=== PATIENT | female | born 1985 | race Caucasian/White ===

== ENCOUNTER → 2017-02-08 | Outpatient (CLI) | payer BC ==
[~2017-02-08] MED LIST: MTR600X PO; OXYC-57 PO; PROZAC PO
[2017-02-08 17:21] LABS: BASO % 0.3 %; BASO ABS # 0.02 K/uL (0-0.2); COMPLETE YES; IG% 0.1 %; LYMPH % 26.5 %; LYMPH ABS # 1.84 K/uL (1.2-3.4); MEAN CORPUSCULAR HEMOGLOBIN 28.8 pg (25-34); MEAN CORPUSCULAR HGB CONC 34.8 g/dl (32-36); MEAN PLATELET VOLUME 10.7 fL (7.4-10.4); MONO % 9.5 %; NEUT % 58.6 %; PLATELET COUNT 221 K/uL (130-400); RED BLOOD COUNT 4.82 M/uL (4.2-5.4); WHITE BLOOD COUNT 6.95 K/uL (4.8-10.8)
== END | disposition home or self-care (01) ==
LOC: C.LAB1850 16:01
PROVIDERS: ATTEND Obstetrics & Gynecology
DX: O34.219 Maternal care for unspecified type scar from previous cesarean delivery (principal)

== ENCOUNTER → 2017-02-08 | Outpatient (CLI) | payer BC ==
[2017-02-08 18:19] LABS: URINE APPEARANCE CLEAR (CLEAR); URINE BILIRUBIN NEG (NEG); URINE COLOR YELLOW; URINE NITRITE NEG (NEG); URINE PH 6.5 (4.5-7.5); URINE SPECIFIC GRAVITY 1.007 (1.000-1.030); UROBILINOGEN NEG (NEG)
[2017-02-08 18:27] LABS: MANUAL MICROSCOPIC REQUIRED? NO; REVIEW REQ? NO
[2017-02-11 15:43] LABS: CHLAMYDIA TRACH RNA*** NOT DETECTED (NOT DETECTED); GC (NEIS GONORRHOEAE)RNA** NOT DETECTED (NOT DETECTED)
== END | disposition home or self-care (01) ==
LOC: C.LABSPEC 17:24
PROVIDERS: ATTEND Obstetrics & Gynecology
DX: O34.219 Maternal care for unspecified type scar from previous cesarean delivery (principal)

== ENCOUNTER → 2017-04-05 | Outpatient (CLI) | payer BC ==
[2017-04-05 12:46] LABS: GTGD 50 Grams
== END | disposition home or self-care (01) ==
LOC: C.LAB1850 09:31
PROVIDERS: ATTEND Obstetrics & Gynecology
DX: O34.219 Maternal care for unspecified type scar from previous cesarean delivery (principal)

== ENCOUNTER → 2017-04-08 | Outpatient (CLI) | payer BC ==
[2017-04-08 07:50] LABS: PATIENT HEIGHT 172.7 cm
[2017-04-08 14:47] LABS: URINE TOTAL PROTEIN 6.7 mg/dl (0-11.9)
[2017-04-08 14:49] LABS: CREATININE 0.74 mg/dl (0.6-1.2)
== END | disposition home or self-care (01) ==
LOC: C.LABMFLN 07:40
PROVIDERS: ATTEND Obstetrics & Gynecology
DX: O10.019 Pre-existing essential hypertension complicating pregnancy, unspecified trimester (principal); Z3A.00 Weeks of gestation of pregnancy not specified

== ENCOUNTER → 2017-04-12 | Outpatient (CLI) | payer BC | END | disposition home or self-care (01) | LOC: C.LAB1850 07:54 | PROVIDERS: ATTEND Obstetrics & Gynecology | DX: O28.1 Abnormal biochemical finding on antenatal screening of mother (principal) ==

== ENCOUNTER → 2017-06-28 | Outpatient (CLI) | payer BC ==
[2017-06-28 09:38] LABS: HEMATOCRIT 36.7 % (37-47)
[2017-06-28 14:18] LABS: URINE APPEARANCE CLEAR (CLEAR); URINE BILIRUBIN NEG (NEG); URINE COLOR YELLOW; URINE EPITHELIAL CELL AUTO >30 /lpf (0-5); URINE NITRITE NEG (NEG); URINE PH 6.5 (4.5-7.5); URINE SPECIFIC GRAVITY 1.013 (1.000-1.030); UROBILINOGEN NEG (NEG)
[2017-06-28 14:26] LABS: MANUAL MICROSCOPIC REQUIRED? NO; REVIEW REQ? NO
== END | disposition home or self-care (01) ==
LOC: C.LAB1850 08:04
PROVIDERS: ATTEND Obstetrics & Gynecology
DX: O09.213 Supervision of pregnancy with history of pre-term labor, third trimester (principal); Z3A.00 Weeks of gestation of pregnancy not specified; O28.1 Abnormal biochemical finding on antenatal screening of mother

== ENCOUNTER 2017-09-05 10:27 | Inpatient (IN) | payer BC ==
[2017-09-05] VITALS: BP 145/95; PULSE 72; TEMP 36.4; O2SAT 100
[~2017-09-05] VITALS: Ht 172.7 cm; Wt 90.5 kg
[2017-09-05] MEDS ORDERED: PRENTAB26 PO (11:24)
[2017-09-05 11:27] VITALS: Ht 172.7 cm; Wt 90.5 kg
[2017-09-05 11:43] LABS: BASO % 0.2 %; BASO ABS # 0.02 K/uL (0-0.2); EOS % 3.3 %; EOS ABS # 0.32 K/uL (0-0.5); HEMATOCRIT 34.3 % (37-47); HEMOGLOBIN 12.1 g/dL (12.0-16.0); IG# 0.05 K/uL (0.00-0.02); LYMPH % 16.5 %; LYMPH ABS # 1.61 K/uL (1.2-3.4); MEAN CELL VOLUME 86.4 fL (80-100); MEAN CORPUSCULAR HEMOGLOBIN 30.5 pg (25-34); MEAN CORPUSCULAR HGB CONC 35.3 g/dl (32-36); MEAN PLATELET VOLUME 10.2 fL (7.4-10.4); MONO ABS # 0.49 K/uL (0.11-0.59); NEUT % 74.5 %; NEUT ABS # 7.25 K/uL (1.4-6.5); PLATELET COUNT 155 K/uL (130-400); RED CELL DISTRIBUTION WIDTH CV 12.8 % (11.5-14.5); RED CELL DISTRIBUTION WIDTH SD 40.4 fL (36.4-46.3); WHITE BLOOD COUNT 9.74 K/uL (4.8-10.8)
[2017-09-05 12:49] LABS: ALBUMIN 2.6 gm/dl (3.4-5.0); CALCIUM 8.5 mg/dl (8.5-10.1); CREATININE 0.71 mg/dl (0.60-1.20); POTASSIUM 3.6 mmol/L (3.5-5.1)
[2017-09-05] MEDS ORDERED: CITRIC ACID/SODIUM CITRATE 15 ML UDC PO ONE (13:30)
--- NOTE | 2017-09-05 13:40 | History & Physical Bridge Note ---
H&P Re-Evaluation Bridge Note: I have examined the patient, reviewed the History & Physical and in the interval since the performance of the History & Physical I have noted the following changes of clinical significance: No changes noted
[2017-09-05] MEDS ORDERED: OXYTOCIN INJ 10 UNITS/ML VIAL ONE ×4 (13:49→16:28)
[2017-09-05] MEDS ORDERED: MoRPHine SULFATE PF 1 MG/ML 10 ML AMP/VIAL ONE (13:50)
[2017-09-05] MEDS ORDERED: FENTANYL CITRATE INJ 50 MCG/1 ML 2 ML VIAL ONE (13:50)
[2017-09-05] MEDS ORDERED: LACTATED RINGER'S 1000ML 1,000 ML IV ONE (13:50)
[2017-09-05] MEDS ORDERED: EpHEDrine SULFATE INJ 50 MG/ML AMP ONE (13:59)
[2017-09-05] MEDS ORDERED: CEFAZOLIN IV 2,000 MG in SYRINGE 0 ML IV ONE (14:00)
[2017-09-05] MEDS ORDERED: CEFAZOLIN IV 2,000 MG in DEXTROSE 5% 50ML 50 ML IV SCH (14:00)
--- NOTE | 2017-09-05 14:04 | HISTORY & PHYSICAL EXAMINATION ---
DATE OF ADMISSION: 09/05/2017 CHIEF COMPLAINT: Elevated blood pressures. HISTORY OF PRESENT ILLNESS: The patient is a 32-year-old G2, P1-0-0-1 at 37 weeks 6 days, who was sent from office with elevated blood pressures. She has been watched for chronic hypertension; however, over the past 2 visits, her blood pressures have climbed from 130s/80s to now 140s/90s and 150s/100s. She also complains of a headache. No right upper quadrant pain. Did see flashing spots in her vision earlier this week. is complicated by asthma, chronic hypertension, history of section, breech presentation, depression, group B strep carrier, history of delivery, thus requiring 17-OHP injections during this . Today, she reports positive movement. No vaginal bleeding. No gushing of fluid. No regular cramping or cinthya. PAST MEDICAL HISTORY: Migraines and anxiety without current medications. Sees [employer]. Depression and exercise induced asthma. PAST SURGICAL HISTORY: [employer] teeth, section, and colonoscopy. SOCIAL HISTORY: Denies tobacco, alcohol or drug use. Lives with spouse and daughter. FAMILY HISTORY: The patient's mother is with cleft lip and thyroid cancer. There is also a family history of diabetes. The patient's mother is with probable history of DVT as well as her maternal grandmother. The patient herself has never had a clot. REVIEW OF SYSTEMS: Negative except as described. Otherwise above. MEDICATIONS: vitamin and fluoxetine. ALLERGIES: No known drug allergies. PHYSICAL EXAMINATION: VITAL SIGNS: Blood pressure 150s/100s, heart rate 81, respirations 20, and temperature 98.2. GENERAL IMPRESSION: Awake, alert and oriented x3, in no acute distress. HEART: Regular rate and rhythm. S1 and S2. No murmurs, gallops or rubs. LUNGS: Clear to auscultation bilaterally. ABDOMEN: Soft, gravid, nontender to palpation. Breech by Kraig's. EXTREMITIES: No edema and no calf tenderness. heart tracing 120s with moderate variability, positive accelerations, no decelerations, and occasional contractions. LABORATORY DATA: Blood type A positive and rubella immune. Group B strep positive from urine culture early in . Hepatitis, HIV, gonorrhea and chlamydia, and syphilis testing negative. Declined cystic fibrosis testing. Anatomy scan shows uterine septum. Preeclampsia labs today are negative. In the patient's laboratory charting, there is a documented administration of RhoGAM on 08/01/2017; however, the patient has never had an appointment that day and she does not recall ever being administered RhoGAM. Additionally, she is Rh positive blood type and does not recall ever being told at any point that she was Rh negative blood type. I believe in discussion with the patient that this is likely a mistake in her charting; however, we will obtain a type and screen again today to be sure. ASSESSMENT AND PLAN: 1. A 32-year-old G2, P1-0-0-1 at 37 weeks 6 days. 2. Chronic hypertension with worsening blood pressures and symptomatic hypertension with headache. 3. Breech presentation with uterine septum. 4. History of section x1. PLAN: Due to the patient's worsening blood pressures and headache, we will proceed with section at this time. She also desires tubal ligation at the time of section. The patient has been counseled. Risks, benefits, and alternatives have been reviewed. She had elected to proceed with treatment. We will proceed to the operating room when ready. MARTIN
[2017-09-05] MEDS ORDERED: LACTATED RINGER'S 1000ML 1,000 ML IV SCH ×2 (14:50→16:19)
[2017-09-05] MEDS ORDERED: NALOXONE HCL INJ 1 MG in SODIUM CHLORIDE 0.9% 1000ML 1,000 ML IV PRN ×5 (14:51→15:41)
[2017-09-05] MEDS ORDERED: SODIUM CHLORIDE 0.9% 1000ML 1,000 ML IV PRN ×2 (14:51→15:41)
[2017-09-05] MEDS ORDERED: KETOROLAC TROMETHAMINE 30 MG/ML VIAL IV. PRN (15:00)
[2017-09-05] MEDS ORDERED: PHENYLEPHRINE 100MCG/ML 5ML SYR IV PRN (15:00)
[2017-09-05] MEDS ORDERED: NALBUPHINE HCL INJ 10 MG/ML AMP IV PRN ×2 (15:00→15:45)
[2017-09-05] MEDS ORDERED: DiphenhydrAMINE HCL 50 MG/ML VIAL IV PRN ×2 (15:00→15:45)
[2017-09-05] MEDS ORDERED: ONDANSETRON INJ 2 MG/ML 2 ML VIAL IV PRN ×2 (15:00→15:45)
[2017-09-05] MEDS ORDERED: PROMETHAZINE HCL INJ 12.5 MG in SODIUM CHLORIDE 0.9% 50ML 50 ML IV PRN (15:00)
[2017-09-05] MEDS ORDERED: ATROPINE SULFATE 0.1 MG/ML 5ML SYR IV PRN (15:00)
[2017-09-05] MEDS ORDERED: EpHEDrine SULFATE INJ 50 MG/ML AMP IV PRN ×2 (15:00→15:45)
[2017-09-05] MEDS ORDERED: LABETALOL HCL IV 5 MG/ML 20ML IV PRN (15:00)
[2017-09-05] MEDS ORDERED: FENTANYL CITRATE INJ 50 MCG/1 ML 2 ML VIAL IV PRN (15:00)
[2017-09-05] MEDS ORDERED: NALOXONE HCL INJ 0.08 MG in SYRINGE 1.8 ML IV PRN (15:41)
[2017-09-05] MEDS ORDERED: LACTATED RINGER'S 1000ML 500 ML IV PRN (15:41)
[2017-09-05] MEDS ORDERED: METOCLOPRAMIDE HCL INJ 20 MG in SODIUM CHLORIDE 0.9% 50ML 50 ML IV PRN (15:45)
[2017-09-05] MEDS ORDERED: MEPERIDINE HCL 25 MG/ML CARP IV PRN (15:45)
[2017-09-05] MEDS ORDERED: NALOXONE HCL 0.4 MG/1 ML VIAL/CARP IV PRN (15:45)
[2017-09-05] MEDS ORDERED: MoRPHine SULFATE 2 MG/ML CARP IV PRN (15:45)
[2017-09-05] MEDS ORDERED: PROMETHAZINE HCL INJ 25 MG in SODIUM CHLORIDE 0.9% 50ML 50 ML IV PRN (15:45)
[2017-09-05] MEDS ORDERED: NO NARCOTICS OR SEDATIVES SCH (15:45)
[2017-09-05] MEDS ORDERED: MoRPHine SULFATE PF 1 MG/ML 10 ML AMP/VIAL EPI PRN (15:45)
--- NOTE | 2017-09-05 16:24 | [facility] Post Operative Brief Note ---
Immediate Operative Summary Operative Date Sep 05, 2017. Pre-Operative Diagnosis 1. Worsening chronic hypertension. 2. History of low transverse section. 3. Breech presentation. Post-Operative Diagnosis Same Procedure(s) Performed 1. Repeat low transverse section. 2. Bilateral tubal ligation. Surgeon Dr. Alvarado Sanipractic Physician Surgeon(s) Ashly Hilliard RN Estimated Blood Loss 600 Findings Viable male . Normal appearing uterus, tubes, ovaries. Specimens A. Placenta - hold B. Cord blood C. Aterial cord blood gases D. Venous cord blood gases Drains long, clear yellow Anesthesia spinal Complication(s) None Disposition Recovery Room / PACU
[2017-09-05] MEDS ORDERED: EpHEDrine SULFATE 50MG/5ML SYR ONE (16:28)
[2017-09-05] MEDS ORDERED: PHENYLEPHRINE HCL INJ 10 MG/ML VIAL ONE (16:28)
[2017-09-05] MEDS ORDERED: BENZOCAINE 20% AER SPR 82.5 GM CAN EXT PRN (16:30)
[2017-09-05] MEDS ORDERED: LANOLIN OINT EXT PRN (16:30)
[2017-09-05] MEDS ORDERED: HYDROCORTISONE ACETATE 25 MG SUPP PR PRN (16:30)
[2017-09-05] MEDS ORDERED: SUPERCREAM 0.870 % 15GM JAR EXT PRN (16:30)
[2017-09-05] MEDS ORDERED: MAGNESIUM HYDROXIDE SUSP 30 ML UDC PO PRN (16:30)
[2017-09-05] MEDS ORDERED: ONDANSETRON INJ 2 MG/ML 2 ML VIAL ONE (16:32)
--- NOTE | 2017-09-05 17:03 | OPERATIVE REPORT ---
DATE OF OPERATION: 09/05/2017 PREDELIVERY DIAGNOSES: 1. A 32-year-old G2, P1-0-0-1 at 37 weeks 6 days. 2. Chronic hypertension with worsening blood pressures today and headache. 3. History of section x1. 4. Breech presentation. 5. Desire for permanent sterilization. POSTDELIVERY DIAGNOSES: Same. PROCEDURES PERFORMED: Repeat low transverse section and bilateral tubal ligation with Filshie clips. SURGEON: Dr. Wanda Alvarado. DIGITAL WATCH ASSEMBLER: Heather Hilliard RN. ESTIMATED BLOOD LOSS: 600 mL. FINDINGS: Viable male , normal-appearing uterus, tubes, and ovaries. Apgars 6, 8, 8. Weight is still pending. Please see nursery records. DRAINS: Celaya, clear yellow. ANESTHESIA: Spinal. COMPLICATIONS: None. DISPOSITION: Stable and good to recovery room. INDICATIONS FOR PROCEDURE: The patient was seen in the office today with elevated blood pressures in the 150s/100s. She was sent to labor and delivery and blood pressures upon arrival to labor and delivery were the similar, going as high as 164 systolic and 109 diastolic. Due to suddenly worsening blood pressures in consultation with the doctor who sent her from the office Dr. Khanna, I recommended delivery today to the patient; she was agreeable. She also desired permanent sterilization. DESCRIPTION OF DELIVERY: The patient was seen in the preoperative holding area where risks, benefits, alternatives to surgery were reviewed. She elected to proceed with section. We also discussed tubal ligation consent including risk of failure of 2-10/999 cases. She states she has completed childbearing and would like to proceed with section as well as tubal ligation. The patient was taken to the operating room where spinal anesthesia was administered. She was prepared and draped in the usual sterile fashion in the supine position with a leftward tilt. A timeout was confirmed. Using a scalpel, a Pfannenstiel incision was made at the location of the prior scar and carried through to the underlying layer of fascia, this was nicked at midline and extended bilaterally. The superior aspect of the fascial incision was grasped with Aimee clamps x2, elevated off the underlying rectus abdominis muscles and dissected. In a similar fashion, the inferior aspect of the fascial incision was dissected. The rectus abdominis muscles were at midline using a hemostat and the peritoneum was entered bluntly digitally. This incision was extended. Bladder blade was placed and a bladder flap was created using Metzenbaum scissors. The bladder blade was replaced. The uterine incision was made in a low transverse fashion with a new scalpel. This incision was extended cephalad caudad manually. The baby was delivered from a breech presentation. The right leg was delivered first followed by the buttocks followed by the left leg being swept to the center. The baby was wrapped in a damp blue towel and bilateral arms were swept medially for delivery. The head was then delivered. Nuchal cord x1 was noted and easily reduced. The cord was doubly clamped and cut and the baby was handed off to the waiting pediatrics team. The uterus was exteriorized and cleared of all clots and debris. Uterine septum was noted during clear of clots. The hysterotomy incision was reapproximated using 0 Vicryl in a running locked stitch, another stitch of the same suture was used to imbricate the hysterotomy incision. Excellent hemostasis was observed. Prior to replacing the uterus into the abdomen, the tubal ligation was performed by grasping each tube identified by its fimbria with the Filshie clip, approximately 2 cm from the cornual region and following placement of the clips, the uterus was returned to the abdomen. Excellent hemostasis was again observed. The gutters were cleared of all clots and debris. The fascial incision was reapproximated using 0 Vicryl in a running stitch. The subcutaneous tissue was irrigated. The subcuticular tissue was reapproximated using 2-0 plain gut in a running stitch and the skin was reapproximated using 4-0 Vicryl in a running subcuticular stitch. Steri-Strips and a bandage were applied. The patient tolerated the procedure well. Sponge, instrument and needle counts were correct at the conclusion of the delivery x2. I attest to the content of the Intraoperative Record and any orders documented therein. Any exceptions are noted below. DARYLD
[2017-09-05] MEDS ORDERED: OXYTOCIN INJ 20 UNITS in LACTATED RINGER'S 1000ML 1,000 ML IV SCH (17:15)
--- NOTE | 2017-09-05 17:33 | Anesthesiology Progress Note ---
Anesthesia Post Op Note Date & Time Sep 05, 2017 at 17:33 Notes Mental Status: alert / awake / arousable, participated in evaluation Pt Amnestic to Procedure: Yes Nausea / Vomiting: adequately controlled Pain: adequately controlled Airway Patency, RR, SpO2: stable & adequate BP & HR: stable & adequate Hydration State: stable & adequate Neuraxial Anesthesia: was administered, sensory block is resolving Anesthetic Complications: no major complications apparent
[2017-09-05] MEDS: KETOROLAC TROMETHAMINE 30 MG/ML VIAL IV. PRN (17:57)
[2017-09-05 20:00] VITALS: BP 145/91; PULSE 82; TEMP 37; O2SAT 100
[2017-09-05] MEDS ORDERED: FLUOXETINE HCL 20 MG CAP PO SCH (20:00)
[2017-09-05 21:00] VITALS: BP 161/91; PULSE 89; TEMP 37; O2SAT 98
[2017-09-05 22:00] VITALS: O2SAT 100
[2017-09-05 23:00] VITALS: O2SAT 100
[2017-09-06] VITALS (16 sets, daily range): BP systolic 145–157; BP diastolic 88–108; PULSE 61–82; TEMP 36.4–37; O2SAT 99–100
[2017-09-06] MEDS: SIMETHICONE 80 MG CHEW PO SCH ×5 (00:15→20:06)
[2017-09-06] MEDS: DOCUSATE SODIUM 100 MG CAP PO SCH ×3 (00:15→20:06)
[2017-09-06] MEDS: KETOROLAC TROMETHAMINE 30 MG/ML VIAL IV. PRN ×2 (00:16→06:14)
--- NOTE | 2017-09-06 06:55 | OB/GYN Progress Note ---
[employer] Progress Note Date of Service Sep 06, 2017. Subjective conversation w/ patient, physical exam, chart review, lab review Ambulation: ambulating normally Voiding: long catheter in place Passing Gas: Yes Diet Tolerance: Regular Diet Lochia: Small Feeding Type: Breast Feeding Pain: well controlled Review of Systems Constitutional: No fever, No chills Respiratory: No cough, No shortness of breath Cardiac: No chest pain, No palpitations Abdomen: No pain, No nausea, No vomiting Female : No dysuria Objective Vital Signs Date Time Temp Pulse Resp B/P (MAP) Pulse Ox O2 Delivery O2 Flow Rate FiO2 09/06/17 04:00 18 100 09/06/17 04:00 18 147/94 (111) 100 Room Air 09/06/17 03:39 100 Room Air 09/06/17 03:00 16 100 09/06/17 02:00 16 99 09/06/17 01:00 18 100 09/06/17 00:00 36.4 82 18 145/95 (112) 100 Room Air 09/05/17 23:00 18 100 09/05/17 22:00 18 100 09/05/17 21:00 18 98 09/05/17 21:00 37.0 89 18 161/91 (114) 98 Room Air 09/05/17 20:00 37.0 82 18 145/91 (109) 100 Room Air 09/05/17 20:00 100 Room Air 09/05/17 20:00 18 100 09/05/17 17:39 Room Air Physical Exam General Appearance: WELL-APPEARING, WD/WN, NO APPARENT DISTRESS Respiratory/Chest: lungs clear, normal breath sounds Cardiovascular: regular rate, rhythm, no murmur Abdomen: non tender, soft Fundus: Firm Incision Description: Clean, Dry & Intact Extremities: normal inspection, no calf tenderness Laboratory Results Last 24 Hours Test 09/05/17 11:28 09/05/17 11:48 09/06/17 06:39 White Blood Count 9.74 K/uL Red Blood Count 3.97 M/uL Hemoglobin 12.1 g/dL Hematocrit 34.3 % Mean Corpuscular Volume 86.4 fL Mean Corpuscular Hemoglobin 30.5 pg Mean Corpuscular Hemoglobin Concent 35.3 g/dl Platelet Count 155 K/uL Mean Platelet Volume 10.2 fL Neutrophils (%) (Auto) 74.5 % Lymphocytes (%) (Auto) 16.5 % Monocytes (%) (Auto) 5.0 % Eosinophils (%) (Auto) 3.3 % Basophils (%) (Auto) 0.2 % Neutrophils # (Auto) 7.25 K/uL Lymphocytes # (Auto) 1.61 K/uL Monocytes # (Auto) 0.49 K/uL Eosinophils # (Auto) 0.32 K/uL Basophils # (Auto) 0.02 K/uL RDW Standard Deviation 40.4 fL RDW Coefficient of Variation 12.8 % Immature Granulocyte % (Auto) 0.5 % Immature Granulocyte # (Auto) 0.05 K/uL Sodium Level 136 mmol/L Potassium Level 3.6 mmol/L Chloride Level 106 mmol/L Carbon Dioxide Level 21 mmol/L Anion Gap 9.0 mmol/L Blood Urea Nitrogen 8 mg/dl Creatinine 0.71 mg/dl Est Creatinine Clear Calc Drug Dose 135.1 ml/min Estimated GFR () 131.5 Estimated GFR (Non- 113.5 BUN/Creatinine Ratio 11.0 Random Glucose 72 mg/dl Calcium Level 8.5 mg/dl Total Bilirubin 0.8 mg/dl Aspartate Amino Transf (AST/SGOT) 14 U/L Alanine Aminotransferase (ALT/SGPT) 17 U/L Alkaline Phosphatase 99 U/L Total Protein 7.0 gm/dl Albumin 2.6 gm/dl Globulin 4.4 gm/dl Albumin/Globulin Ratio 0.6 Assessment and Plan Post-Op Day Number: 1 Continue Routine Care: 32 y female delivered via csection (09/05/2017, 1530) @ 37.6wks Post op day 1 GBS+/A+/RI Pt had elevated BP in the clinic and was sent to L&D and subsequent csection. Since csection pressures have been in the 140's/ 90's. Pt is doing well. Patient is tolerating a normal diet. Patient still has Long in place, normal output. Plan; 1. Remove long, monitor I/O, ambulate patient 2. Monitor lochia, control pain 3. Follow serial BP today Resident Physician Supervision Note: I was present with Dr. Temple during the history and exam. I discussed the case with the resident and agree with the findings and plan as documented in the note. Any exceptions or clarifications are listed here: POD#1 doing well. Continue to monitor BPs. Documented By: Wanda Alvarado
[2017-09-06 06:58] LABS: BASO % 0.1 %; BASO ABS # 0.01 K/uL (0-0.2); EOS % 2.7 %; EOS ABS # 0.26 K/uL (0-0.5); HEMATOCRIT 31.8 % (37-47); IG# 0.03 K/uL (0.00-0.02); LYMPH % 14.2 %; LYMPH ABS # 1.39 K/uL (1.2-3.4); MEAN CELL VOLUME 86.4 fL (80-100); MEAN CORPUSCULAR HEMOGLOBIN 29.9 pg (25-34); MEAN CORPUSCULAR HGB CONC 34.6 g/dl (32-36); MEAN PLATELET VOLUME 9.9 fL (7.4-10.4); MONO % 6.9 %; MONO ABS # 0.68 K/uL (0.11-0.59); NEUT % 75.8 %; NEUT ABS # 7.43 K/uL (1.4-6.5); PLATELET COUNT 143 K/uL (130-400); RED CELL DISTRIBUTION WIDTH CV 12.5 % (11.5-14.5); RED CELL DISTRIBUTION WIDTH SD 39.8 fL (36.4-46.3)
[2017-09-06] MEDS ORDERED: DiphenhydrAMINE HCL 50 MG/ML VIAL IV PRN (08:00)
[2017-09-06] MEDS: PRENATAL VITAMIN TAB PO SCH (08:03)
[2017-09-06] MEDS: FLUOXETINE HCL 20 MG CAP PO SCH (08:04)
[2017-09-06] MEDS ORDERED: ONDANSETRON INJ 2 MG/ML 2 ML VIAL IV PRN (09:00)
[2017-09-06] MEDS ORDERED: PROMETHAZINE HCL INJ 25 MG in SODIUM CHLORIDE 0.9% 50ML 50 ML IV PRN (09:00)
[2017-09-06] MEDS ORDERED: OXYCODONE/ACETAMINOPHEN 5-325 TAB PO PRN (09:00)
[2017-09-06] MEDS ORDERED: KETOROLAC TROMETHAMINE 30 MG/ML VIAL IV. PRN (09:00)
[2017-09-06] MEDS ORDERED: DC INTRASPINAL MORPHINE SCH (09:00)
[2017-09-06] MEDS: OXYCODONE/ACETAMINOPHEN 5-325 TAB PO PRN ×3 (12:43→23:44)
[2017-09-06] MEDS: IBUPROFEN 600 MG TAB PO PRN ×3 (12:43→23:43)
[2017-09-06] MEDS ORDERED: BISACODYL 5 MG TABEC PO ONE (22:00)
[2017-09-07] VITALS: BP 155/95; PULSE 76; TEMP 36.5
--- NOTE | 2017-09-07 06:05 | Discharge Instructions ---
Discharge Instructions Date of Service Sep 07, 2017. Admission Reason for Admission: Blood Pressure Check Discharge Discharge Diagnosis / Problem: recovery from csection Discharge Goals Goal(s): Routine recovery after Medications Continue Dispensed Medications: supercream, dermaplast, tucks, lansinoh Activity Recommendations Activity Limitations: per Instructions/Follow-up section . Instructions / Follow-Up Instructions / Follow-Up ACTIVITY RECOMMENDATIONS: * Gradual return to full activity over the next 2-3 weeks. * No lifting - nothing heavier than baby over the next 2-3 weeks. * Do not engage in vigorous exercise, sexual activity or sports until cleared by your physician. * Do not drive or operate any motorized equipment until cleared by your physician. * You may shower/bathe daily. MEDICATIONS: For discomfort or pain, you may use Acetaminophen (Tylenol), Ibuprofen (Advil), or Naproxen (Aleve) following the package directions. For constipation you may use Colace following the package directions. BREAST CARE: If you are not breast feeding: * Wear a supportive bra 24 hours a day for one to two weeks. * Avoid stimulating your breasts and nipples as much as possible during the first few weeks after delivery. * When taking a shower, have the warm water hit your back, not breasts. * When your breasts feel full, apply ice packs. Usually three to four times a day helps ease the discomfort. * Take a mild pain medication (Tylenol / Motrin) when you are uncomfortable. If breast feeding: * Use breast milk to lubricate nipples. Lansinoh cream may be used for sore nipples. You do not need to remove cream prior to breast feeding. If using a different brand of cream, check the label for directions regarding removal of cream prior to nursing. * Wear a supportive bra. * If having problems with breasts or breast feeding, call a health care consultant or your health care provider. SPECIAL CARE INSTRUCTIONS: When you are discharged from the hospital, it is important for you to follow the instructions listed below: * During the first week at home, you should be able to care for yourself and your baby. In addition, the usual light household activities are encouraged. * Limit your activities to the way you feel. Do not try to clean the house or move furniture. Be sensible. * If you actively engage in sports and have done so up until the time of your delivery, you may resume these activities as soon as you feel able. This may take up to one month or even longer. Use good judgment. * Continue to take your vitamins for at least six weeks after the of your baby. * Your diet need not be limited unless you were on a special diet before your delivery. Breast-feeding mothers need around 2500 calories per day and at least 64-80 ounces of fluid per day (8 to 10 glasses). * You should eat foods from the four major food groups. Crash diets or fad diets are to be avoided. Eating lean meats, fresh fruits and vegetables, low-fat dairy products, high fiber foods and a regular exercise program, will help you get back to your pre- weight without putting your health at risk. * Constipation is sometimes a problem after delivery. Take a mild laxative as needed. If breast feeding, Milk of Magnesia is acceptable to use. You may use a suppository or Fleets enema. * A daily shower or tub bath is suggested. Wash incision daily with warm soapy water and pat dry. It doesn't need to be covered unless drainage is present. * A bloody vaginal discharge will usually continue until around four weeks . A small amount of bleeding may continue for as long as six weeks. Vaginal discharge changes from the bright red bleeding after delivery to pink then brownish and finally yellowish-pink before becoming white and disappearing. * Bleeding may increase with activity. Your first period may come in 4-8 weeks. If you are breast feeding, your period may be delayed even longer. * Everman (sex) can begin whenever both you and your partner feel comfortable and do not have any form of genital infection. It is recommended that you wait at least six weeks for internal and external healing to occur. If you have questions, please talk to your health care practitioner. A condom should be used to prevent infection and . * Foreplay, gentle intercourse and lubrication is very important the first several times to prevent pain. A water-based lubricant such as K-Y jelly or Astroglide may be used. * If you have RH negative blood and your baby is RH positive, you will receive RHOGAM by injection prior to discharge. The nurse will give you a card to keep with you that has the date and place that you received RHOGAM after delivery. * During your care, you had a Rubella screen done to check for the presence of rubella antibodies in your blood. If your test was negative, you will receive a Rubella vaccine prior to discharge. This vaccine may cause a fever, soreness at the injection site and flu-like symptoms. If these symptoms persist, notify your health care practitioner. is not advised for one month after a Rubella vaccine. * Verbalizes understanding of car seat law as reviewed with patient nursing. * Car Seat hand-out given and reviewed with patient by nursing. * Shaken baby information reviewed with patient by nursing. Call you doctor if: * Heavy bleeding (saturating several pads an hour) or passing clots the size of your fist. * A fever >101 degrees F (38.3 degrees C) on two occasions four hours apart and /or chills. * Unusual pain in the pelvic or vaginal areas. * Call the doctor for any increased redness, drainage or swelling around the incision and any pain unrelieved by prescribed pain medication. * "Baby Blues" lasting longer than two weeks. If you have any questions or concerns, call your health care practitioner at . FOLLOW UP VISIT: * Please call the office at to schedule a 6 week examination. It is important you keep this appointment. It is important for you to make arrangements for either yearly or twice yearly check-ups thereafter. Current Hospital Diet Patient's current hospital diet: Regular OB Diet Discharge Diet Recommended Diet: Regular OB Diet Procedures Procedures Performed: 1. Repeat low transverse section. 2. Bilateral tubal ligation. Pending Studies Studies pending at discharge: no Medical Emergencies . Who to Call and When: Medical Emergencies: If at any time you feel your situation is an emergency, please call [phone] immediately. . Non-Emergent Contact Non-Emergency issues call your: Drawing Machine Operator . . "Provider Documentation" section prepared by Reinaldo Temple. . VTE Core Measure Inpt VTE Proph given/why not?: SCD's
--- NOTE | 2017-09-07 06:09 | OB/GYN Progress Note ---
SPECIAL EVENTS PLANNER Progress Note Date of Service Sep 07, 2017. Subjective conversation w/ patient, physical exam, chart review, lab review Ambulation: ambulating normally Voiding: no voiding problems Passing Gas: Yes Diet Tolerance: Regular Diet Lochia: Small Feeding Type: Breast Feeding Pain: moderate pain with ambulation Review of Systems Constitutional: No fever, No chills Respiratory: No cough, No shortness of breath Cardiac: No chest pain Abdomen: No pain, No nausea, No vomiting Female : No dysuria Objective Vital Signs Date Time Temp Pulse Resp B/P (MAP) Pulse Ox O2 Delivery O2 Flow Rate FiO2 09/07/17 00:00 Room Air 09/07/17 00:00 36.5 76 20 155/95 (115) Room Air 09/06/17 16:30 Room Air 09/06/17 16:30 37.0 73 20 147/92 (110) 09/06/17 13:39 80 154/108 (123) 09/06/17 12:05 Room Air 09/06/17 11:15 36.9 73 20 157/98 (117) 99 Room Air 09/06/17 10:15 73 152/88 (109) 09/06/17 09:00 20 100 09/06/17 08:00 18 100 09/06/17 07:35 100 Room Air 09/06/17 07:35 36.9 61 18 156/100 (118) 100 Room Air 09/06/17 07:00 18 100 Physical Exam General Appearance: WELL-APPEARING, WD/WN, NO APPARENT DISTRESS Respiratory/Chest: normal breath sounds, no respiratory distress Cardiovascular: regular rate, rhythm, no murmur Abdomen: non tender, soft Fundus: Firm Incision Description: Clean, Dry & Intact Extremities: normal inspection, no pedal edema, no calf tenderness Laboratory Results Last 24 Hours Test 09/06/17 06:39 09/07/17 06:00 White Blood Count 9.80 K/uL Red Blood Count 3.68 M/uL Hemoglobin 11.0 g/dL Hematocrit 31.8 % Mean Corpuscular Volume 86.4 fL Mean Corpuscular Hemoglobin 29.9 pg Mean Corpuscular Hemoglobin Concent 34.6 g/dl Platelet Count 143 K/uL Mean Platelet Volume 9.9 fL Neutrophils (%) (Auto) 75.8 % Lymphocytes (%) (Auto) 14.2 % Monocytes (%) (Auto) 6.9 % Eosinophils (%) (Auto) 2.7 % Basophils (%) (Auto) 0.1 % Neutrophils # (Auto) 7.43 K/uL Lymphocytes # (Auto) 1.39 K/uL Monocytes # (Auto) 0.68 K/uL Eosinophils # (Auto) 0.26 K/uL Basophils # (Auto) 0.01 K/uL RDW Standard Deviation 39.8 fL RDW Coefficient of Variation 12.5 % Immature Granulocyte % (Auto) 0.3 % Immature Granulocyte # (Auto) 0.03 K/uL Assessment and Plan Post-Op Day Number: 2 Continue Routine Care: 32 y female delivered via csection (09/05/2017, 1530) @ 37.6wks Post op day 1 GBS+/A+/RI Pt had elevated BP in the clinic and was sent to L&D with subsequent . Since , pressures persist in the 140's/ 90's-150/100. Denies QUAN, visual changes, RUQ pain. Plan; 1. Discharge likely tomorrow. D/c instructions discussed with the patient. 2. Follow up closely with BP in the office, within 2-3 days of dc. Continue pp care until dc; 1. Continue to ambulate patient 2. Monitor lochia, control pain 3. Serial BP today Resident Physician Supervision Note: I interviewed and examined the patient. Discussed with Dr. Temple and agree with findings and plan as documented in the note. Any exceptions or clarifications are listed here: Patient without s/s of pet. Pressures borderline but almost all less than 160/100. Will monitor, no indication for treatment at this time. Documented By: Venita Khanna
[2017-09-07 06:18] LABS: HEMOGLOBIN 10.9 g/dL (12.0-16.0)
[2017-09-07] MEDS: DOCUSATE SODIUM 100 MG CAP PO SCH ×2 (08:22→19:56)
[2017-09-07] MEDS: PRENATAL VITAMIN TAB PO SCH (08:22)
[2017-09-07] MEDS: FLUOXETINE HCL 20 MG CAP PO SCH (08:22)
[2017-09-07] MEDS: SIMETHICONE 80 MG CHEW PO SCH ×4 (08:22→19:56)
[2017-09-07 09:00] VITALS: BP 130/84; PULSE 76; TEMP 36.9; O2SAT 98
[2017-09-07] MEDS: IBUPROFEN 600 MG TAB PO PRN ×2 (09:06→17:00)
[2017-09-07] MEDS: OXYCODONE/ACETAMINOPHEN 5-325 TAB PO PRN ×2 (09:08→17:00)
[2017-09-07] MEDS ORDERED: BISACODYL 10 MG SUPP PR PRN (16:30)
[2017-09-07 16:55] VITALS: BP 133/84; PULSE 72; TEMP 37; O2SAT 98
[2017-09-07 23:30] VITALS: BP 148/91; PULSE 74; TEMP 36.7
[2017-09-08 07:17] VITALS: BP 142/82; PULSE 69; TEMP 36.8
[2017-09-08] MEDS: DOCUSATE SODIUM 100 MG CAP PO SCH (07:39)
[2017-09-08] MEDS: SIMETHICONE 80 MG CHEW PO SCH ×2 (07:39→12:07)
[2017-09-08] MEDS: PRENATAL VITAMIN TAB PO SCH (07:39)
[2017-09-08] MEDS: FLUOXETINE HCL 20 MG CAP PO SCH (07:40)
[2017-09-08 08:00] VITALS: BP_DIAS 82; PULSE 69; TEMP 36.8
--- NOTE | 2017-09-08 08:20 | Progress Note ---
Subjective Sep 08, 2017. Subjective conversation w/ patient, physical exam Ambulation: ambulating normally Voiding: no voiding problems Passing Gas: Yes Diet Tolerance: Regular Diet Lochia: Moderate Feeding Type: Breast Feeding Review of Systems Constitutional: No fever, No chills Respiratory: No cough Cardiac: No chest pain Objective Vital Signs Date Time Temp Pulse Resp B/P (MAP) Pulse Ox O2 Delivery O2 Flow Rate FiO2 09/08/17 07:17 36.8 69 20 142/82 (102) 09/07/17 23:30 36.7 74 18 148/91 (110) Room Air 09/07/17 23:30 Room Air 09/07/17 16:55 98 Room Air 09/07/17 16:55 37.0 72 18 133/84 (100) 98 Room Air 09/07/17 09:00 36.9 76 18 130/84 (99) 98 Room Air 09/07/17 09:00 98 Room Air Physical Exam General Appearance: WELL-APPEARING, NO APPARENT DISTRESS Respiratory/Chest: no respiratory distress, no accessory muscle use Cardiovascular: no edema Abdomen: non tender, soft Fundus: Firm Incision Description: Clean, Dry & Intact Extremities: no calf tenderness Assessment and Plan Post-Op Day#: 3 Continue Routine Care: Discharge instructions reviewed
[2017-09-08] MEDS ORDERED: OXYC-57 PO (08:21)
[2017-09-08] MEDS: IBUPROFEN 600 MG TAB PO PRN (11:07)
== END 2017-09-08 12:30 | disposition home or self-care (01) | DRG 766 ==
LOC: C.OPB 10:27 → C.LD 10:27 → C.OPB 13:27 → C.LD 13:27 → C.OBG 19:21
PROVIDERS: ADMIT Obstetrics & Gynecology; ATTEND Obstetrics & Gynecology
PROC: 0UL70CZ Occlusion of Bilateral Fallopian Tubes with Extraluminal Device, Open Approach (ICD-10-PCS; principal; 2017-09-05 15:00)
PROC: 10D00Z1 Extraction of Products of Conception, Low, Open Approach (ICD-10-PCS; principal; 2017-09-05 15:00)
DX: O32.1XX0 Maternal care for breech presentation, not applicable or unspecified (principal); O16.4 Unspecified maternal hypertension, complicating childbirth; O34.211 Maternal care for low transverse scar from previous cesarean delivery; O34.03 Maternal care for unspecified congenital malformation of uterus, third trimester; O69.81X0 Labor and delivery complicated by cord around neck, without compression, not applicable or unspecified; O34.593 Maternal care for other abnormalities of gravid uterus, third trimester; O99.52 Diseases of the respiratory system complicating childbirth; Z3A.37 37 weeks gestation of pregnancy; O99.824 Streptococcus B carrier state complicating childbirth; Z37.0 Single live birth; Z82.49 Family history of ischemic heart disease and other diseases of the circulatory system; Q51.2 Other doubling of uterus; Z30.2 Encounter for sterilization; J45.909 Unspecified asthma, uncomplicated; Z83.3 Family history of diabetes mellitus

== ENCOUNTER → 2017-10-17 | Outpatient (CLI) | payer BC ==
[~2017-10-17] MED LIST changes: -MTR600X PO; +PRENTAB26 PO
== END | disposition home or self-care (01) ==
LOC: C.PAPS 16:08
PROVIDERS: ATTEND Obstetrics & Gynecology
DX: Z39.2 Encounter for routine postpartum follow-up (principal)